=== PATIENT | male | born 1965 | race Two or more races ===

== ENCOUNTER 2021-11-07 14:34 | Emergency (ER) | payer BC, MEDICAID ==
[~2021-11-07] VITALS: Ht 180.3 cm; Wt 115.9 kg
[~2021-11-07 14:34] MED LIST: NO HOME MEDS
[2021-11-07] MEDS ORDERED: ondansetron/PF 4mg/2ml inj IV ONE (14:55)
[2021-11-07] MEDS ORDERED: morphine 4 MG/ML inj SYRINge IV PRN (14:55)
[2021-11-07] MEDS ORDERED: normal saline 1000ML IV soln IVB ONE (14:55)
[2021-11-07 15:18] LABS: BASOPHILS % (AUTO) 0.2 % (0-1); EOSINOPHILS % (AUTO) 0.1 % (0-6); HEMATOCRIT 44.1 % (42.0-52.0); HEMOGLOBIN 15.2 g/dl (14.0-17.9); LYMPHOCYTES # (AUTO) 0.9 X10'3 (1.1-4.8); LYMPHOCYTES % (AUTO) 7.5 % (21-51); MEAN CORPUSCULAR HEMOGLOBIN 31.4 PG (27.0-31.0); MEAN CORPUSCULAR HGB CONC 34.5 g/dL (33.0-36.5); MEAN CORPUSCULAR VOLUME 90.9 FL (78-98); MONOCYTES # (AUTO) 1.1 X10'3 (0-0.9); MONOCYTES % (AUTO) 9.3 % (2-12); NEUTROPHILS # (AUTO) 9.9 X10'3 (1.8-7.7); NEUTROPHILS % (AUTO) 82.9 % (42-75); PLATELET COUNT 288 X10'3 (140-440); RED BLOOD COUNT 4.85 X10'6 (4.70-6.10); RED CELL DISTRIBUTION WIDTH 12.8 % (11.5-14.5)
[2021-11-07 15:33] LABS: ALANINE AMINOTRANSFERASE 29 U/L (12-78); ALBUMIN 4.1 G/DL (3.4-5.0); ALBUMIN/GLOBULIN RATIO 1.1 (1.1-1.5); ALKALINE PHOSPHATASE 119 IU/L (46-116); ASPARTATE AMINO TRANSFERASE 28 U/L (10-37); BILIRUBIN,TOTAL 0.7 MG/DL (0.1-1.0); BLOOD UREA NITROGEN 17 MG/DL (7-18); BUN/CREATININE RATIO 17.7 (5.4-32.0); CALCIUM 8.6 MG/DL (8.5-10.1); CREATININE 0.96 MG/DL (0.60-1.10); GLUCOSE 131 MG/DL (70-104); LIPASE 110 U/L (73-393); TOTAL PROTEIN 7.8 G/DL (6.4-8.2); eGFR 82 ML/MIN
[2021-11-07 15:34] LABS: ANION GAP 11 (8-16); CHLORIDE 104 MMOL/L (99-107); POTASSIUM 3.9 MMOL/L (3.5-5.1); SODIUM 138 MMOL/L (135-145); TOTAL CARBON DIOXIDE 23.1 MMOL/L (24-32)
[2021-11-07 15:56] VITALS: BP 160/93
[2021-11-07 16:23] LABS: CLARITY,URINE CLEAR (Clear); COLOR,URINE YELLOW (Yellow); GLUCOSE, URINE NEGATIVE (Neg); KETONES,URINE NEGATIVE (Neg); LEUKOCYTE ESTERASE ,URINE NEGATIVE (Neg); NITRITES, URINE NEGATIVE (Neg); OCCULT BLOOD,URINE SMALL (Neg); PH,URINE 7.5 (4.8-8.0); PROTEIN,URINE NEGATIVE (Neg); UROBILINOGEN,URINE 0.2 E.U/dL (0.2-1.0)
[2021-11-07 16:27] LABS: UA COLLECTION TYPE VOIDED
[2021-11-07 16:28] LABS: BACTERIA,URINE NONE SEEN /HPF (Neg); MUCUS STRANDS NONE SEEN /LPF (Neg); RBC,URINE 0-2 /HPF (0-2); SPERM FEW /HPF (NEGATIVE); SQUAMOUS EPITHELIAL CELL,UR NONE SEEN /LPF (FEW); WBC,URINE NONE SEEN /HPF (0-4)
[2021-11-07] MEDS ORDERED: tamsulosin 0.4mg capsule PO STA (16:46)
[2021-11-07] MEDS ORDERED: CEPH250T PO (16:50)
[2021-11-07] MEDS ORDERED: HYDR-3965 PO (16:50)
[2021-11-07] MEDS ORDERED: FLO0.4C PO (16:50)
[2021-11-07] MEDS ORDERED: ketorolac trometh. 30mg/ml inj. IV ONE (16:50)
[2021-11-07] MEDS ORDERED: NAPR-56 PO (16:50)
[2021-11-07] MEDS ORDERED: HYDROcodone/acetaminophen 5mg/325mg tablet PO ONE (16:50)
== END 2021-11-07 18:45 | disposition home or self-care (01) ==
LOC: ER 14:34
DX: N20.0 Calculus of kidney (principal); L03.116 Cellulitis of left lower limb; I87.8 Other specified disorders of veins; Z87.442 Personal history of urinary calculi; Z87.19 Personal history of other diseases of the digestive system; Z90.49 Acquired absence of other specified parts of digestive tract; Z79.2 Long term (current) use of antibiotics; Z79.899 Other long term (current) drug therapy
CPT/HCPCS: 36415; 74176; 80053; 81001; 83690; 85025; 93971; 96361; 96374; 96375; 99284; J1885; J2270; J2405; J7030

== ENCOUNTER 2022-04-17 16:35 | Emergency (ER) | payer MEDICAID, SELFPAY ==
[~2022-04-17] VITALS: Ht 180.3 cm; Wt 125.0 kg
[~2022-04-17 16:35] MED LIST changes: +CEPH-585 PO
[2022-04-17 17:00] VITALS: BP 178/92
[2022-04-17] MEDS ORDERED: TETanus/Pertussis (Acell)/Diphther VAC/PF (Tdap-Adult) 0.5ml syringe IMVAC ONE (17:00)
[2022-04-17] MEDS ORDERED: morphine 4 MG/ML inj SYRINge IM ONE (17:10)
[2022-04-17] MEDS ORDERED: bacitracin 15gm ointment TP ONE (17:20)
--- NOTE | 2022-04-18 14:47 | NUR ---
Patient called at approx. 1000 this morning, at which he was inquiring regarding his prescription medications and wound care instructions. I discussed this with patient reviewed patients cart. I told patient that I would discuss this with the provider at 1400 today and get back to him. I just spoke with the patient at which i told him not to remove and/or "pop" the blisters. Patient is to clean the right hand with gentle soap and water, placed bacitracin and/or triple antibiotic ointment and wrap with a sterile gauze per Sherrie [employer]. Patient is also to follow up with wound care tomorrow, as discussed. As far as pain medication, it is recommended for patient to take ibuprofen over the counter per provider. Patient agreed and will follow up with wound care tomorrow at number give on discharge instructions.
== END 2022-04-17 18:25 | disposition home or self-care (01) ==
LOC: ER 16:35
DX: T23.302A Burn of third degree of left hand, unspecified site, initial encounter (principal); Z98.890 Other specified postprocedural states; Z79.2 Long term (current) use of antibiotics; X08.8XXA Exposure to other specified smoke, fire and flames, initial encounter; Y93.89 Activity, other specified; Y92.89 Other specified places as the place of occurrence of the external cause; Y99.8 Other external cause status
CPT/HCPCS: 16020; 90471; 90715; 96372; 99284; A6223; J2270; J7030; A6258; A6266

== ENCOUNTER 2022-09-12 11:52 | Emergency (ER) | payer SELFPAY ==
[~2022-09-12] VITALS: Ht 177.8 cm; Wt 90.0 kg
[2022-09-12] MEDS ORDERED: cefepime 2g/NS 100ml ADVANTAGE 100 ML IV STA (16:53)
[2022-09-12] MEDS ORDERED: vancomycin inj 2,000 MG in normal saline 500ml IV soln 500 ML IV ONE (16:55)
[2022-09-12] MEDS ORDERED: vancomycin inj 1,750 MG in normal saline 500ml IV soln 500 ML IV ONE (17:07)
[2022-09-12] MEDS ORDERED: HYDROcodone/acetaminophen 5mg/325mg tablet PO ONE (17:25)
[2022-09-12 17:26] LABS: BASOPHILS % (AUTO) 0.6 % (0-1); EOSINOPHILS # (AUTO) 0.1 X10'3 (0-0.9); EOSINOPHILS % (AUTO) 2.3 % (0-6); HEMOGLOBIN 15.2 g/dl (14.0-17.9); LYMPHOCYTES # (AUTO) 1.3 X10'3 (1.1-4.8); LYMPHOCYTES % (AUTO) 20.3 % (21-51); MEAN CORPUSCULAR HEMOGLOBIN 31.6 PG (27.0-31.0); MEAN CORPUSCULAR HGB CONC 33.7 g/dL (33.0-36.5); MEAN CORPUSCULAR VOLUME 93.8 FL (78-98); MEAN PLATELET VOLUME 7.5 FL (7.4-10.4); MONOCYTES # (AUTO) 0.8 X10'3 (0-0.9); MONOCYTES % (AUTO) 12.6 % (2-12); NEUTROPHILS # (AUTO) 4.1 X10'3 (1.8-7.7); NEUTROPHILS % (AUTO) 64.2 % (42-75); PLATELET COUNT 243 X10'3 (140-440); RED CELL DISTRIBUTION WIDTH 13.5 % (11.5-14.5); WHITE BLOOD COUNT 6.4 X10'3 (4.5-11.0)
[2022-09-12] MEDS ORDERED: SULF1TAB49 PO (17:28)
[2022-09-12] MEDS ORDERED: HYDR-3965 PO (17:28)
[2022-09-12] MEDS ORDERED: CEPH500C81 PO (17:28)
[2022-09-12 17:36] LABS: ANION GAP 7 (8-16); BILIRUBIN,TOTAL 0.8 MG/DL (0.1-1.0); BLOOD UREA NITROGEN 11 MG/DL (7-18); CALCIUM 8.9 MG/DL (8.5-10.1); CHLORIDE 101 MMOL/L (99-107); CREATININE 0.55 MG/DL (0.60-1.10); GLUCOSE 100 MG/DL (70-104); POTASSIUM 3.6 MMOL/L (3.5-5.1); SODIUM 137 MMOL/L (135-145); TOTAL CARBON DIOXIDE 28.7 MMOL/L (24-32); TOTAL PROTEIN 7.6 G/DL (6.4-8.2); eGFR > 90 ML/MIN
[2022-09-12 17:37] LABS: ALANINE AMINOTRANSFERASE 27 U/L (12-78); ALBUMIN/GLOBULIN RATIO 1.1 (1.1-1.5); ALKALINE PHOSPHATASE 117 IU/L (46-116); ASPARTATE AMINO TRANSFERASE 26 U/L (10-37)
[2022-09-12] MEDS ORDERED: tamsulosin 0.4mg capsule PO SCH (17:57)
[2022-09-12] MEDS ORDERED: diphenhydrAMINE 50 mg/ml inj IV ONE (20:40)
[2022-09-12 21:00] VITALS: BP 133/72
== END 2022-09-12 23:02 | disposition home or self-care (01) ==
LOC: ER 11:53
DX: L03.012 Cellulitis of left finger (principal); Z79.899 Other long term (current) drug therapy; Z79.1 Long term (current) use of non-steroidal anti-inflammatories (NSAID); Z79.2 Long term (current) use of antibiotics
CPT/HCPCS: 36415; 73140; 80053; 84145; 85025; 87040; 96365; 96366; 96368; 96375; 99285; J0692; J1200; J3370; J7040

== ENCOUNTER 2022-09-14 11:15 | Emergency (ER) | payer SELFPAY ==
[~2022-09-14] VITALS: Ht 175.3 cm; Wt 84.1 kg
[~2022-09-14 11:15] MED LIST changes: +CEPH500C81 PO; +HYDR-3965 PO; +SULF1TAB49 PO
[2022-09-14 11:43] VITALS: BP 154/83
== END 2022-09-14 15:30 | disposition left against medical advice (07) ==
LOC: ER 11:16
DX: Z48.00 Encounter for change or removal of nonsurgical wound dressing (principal); Z53.21 Procedure and treatment not carried out due to patient leaving prior to being seen by health care provider

== ENCOUNTER 2022-09-15 08:09 | Emergency (ER) | payer OTHER ==
[~2022-09-15] VITALS: Ht 177.8 cm; Wt 90.0 kg
[2022-09-15 08:46] VITALS: BP 141/90
[2022-09-15] MEDS ORDERED: CefTRIAXone 1000mg IM Kit (w/lidocaine diluent) IM ONE (09:30)
[2022-09-15] MEDS ORDERED: bacitracin 15gm ointment TP ONE (09:30)
== END 2022-09-15 09:58 | disposition home or self-care (01) ==
LOC: ER 08:09
DX: L03.114 Cellulitis of left upper limb (principal); S61.213D Laceration without foreign body of left middle finger without damage to nail, subsequent encounter; W45.8XXD Other foreign body or object entering through skin, subsequent encounter
CPT/HCPCS: 29125; 96372; 99283; A6222; J0696; A6258